=== PATIENT | male | born 1960 | race Caucasian/White ===

== ENCOUNTER 2017-03-22 09:31 | Emergency (ER) | payer BC ==
[2017-03-22] MEDS ORDERED: methylPREDNISolone Sod Succ/PF 125 MG/2 ML VIAL ONE (10:00)
[2017-03-22 10:08] LABS: #Basophils 0.1 thou/uL (0.0-0.2); #Eosinphils 0.1 thou/uL (0.0-0.7); #Lymphocytes 3.3 thou/uL (1.20-3.40); #Neutrophils 5.3 thou/uL (1.40-6.50); %Eosinophils 0.9 % (0.0-10.0); %Lymphocytes 33.8 % (21.0-51.0); %Monocytes 9.8 % (0.0-10.0); %Neutrophils 54.5 % (42.0-75.0); Hemoglobin 18.7 g/dL (14.0-18.0); Mean Corpuscular HGB CONC 32.7 g/dL (32.0-36.0); Mean Corpuscular Hemoglobin 32.5 pg (27.0-31.0); Mean Corpuscular Volume 99.1 fl (80.0-94.0); Mean Platelet Volume 9.6 fL (7.4-10.4); Platelet Count 258 thou/uL (130-400); RBC Distribution Width 14.9 % (11.5-14.5); Red Blood Cell (RBC) Count 5.76 mill/uL (4.70-6.10); White Blood Cell (WBC) Count 9.7 thou/uL (4.8-10.8)
[2017-03-22 10:46] LABS: ALT (SGPT) 10 U/L (0-55); AST (SGOT) 16 U/L (5-34); Albumin 3.5 g/dL (3.5-5.0); Alkaline Phosphatase 52 U/L (40-150); Anion Gap 10 mmol/L (10-20); BUN (Urea Nitrogen) 16 mg/dL (8.4-25.7); Bilirubin, Total 0.5 mg/dL (0.2-1.2); CK (CPK) 47 U/L (30-200); Calc. Creatinine Clearance 0 mL/min (70-130); Calcium 8.3 mg/dL (7.8-10.44); Carbon Dioxide 27 mmol/L (22-29); Chloride 107 mmol/L (98-107); Estimated GFR-MDRD Greater than 90; Globulin 2.3 g/dL (2.4-3.5); Glucose 116 mg/dL (70-105); Potassium 4.4 mmol/L (3.5-5.1); Protein, Total 5.8 g/dL (6.0-8.3); Sodium 140 mmol/L (136-145)
[2017-03-22 10:48] LABS: CKMB 2.3 ng/mL (0-6.6); Troponin I 0.108 ng/mL (< 0.028)
--- NOTE | 2017-03-22 21:54 | RAD ---
CHEST TWO VIEWS: Date: 03-22-17 Comparison: 03-18-14 FINDINGS: There is in an infiltrate present in the right lower lobe near the diaphragm consistent with pneumon ia. The left lung seems relatively clear. Some calcified granulomas are suggested in the hilar regio ns. The heart is mildly enlarged but there are no clear congestive changes. There may be some mild f ibrotic changes throughout the lungs. IMPRESSION: 1. Right lower lobe infiltrate. 2. Cardiomegaly. POS: HOME
== END 2017-03-22 13:28 | disposition short-term general hospital (02) ==
LOC: BURERS 09:31
DX: J44.1 Chronic obstructive pulmonary disease with (acute) exacerbation (principal); J18.9 Pneumonia, unspecified organism; I25.2 Old myocardial infarction; E78.5 Hyperlipidemia, unspecified; I10 Essential (primary) hypertension; Z87.891 Personal history of nicotine dependence; Z79.899 Other long term (current) drug therapy
CPT/HCPCS: 36415; 71020; 80053; 82550; 82553; 83880; 84484; 85025; 87040; 93005; 94640; 94760; 96365; 96366; 96375; J1956; J2930; J7620

== ENCOUNTER 2017-06-21 13:38 | Inpatient (IN) | payer MEDICARE ==
[2017-06-21] MEDS ORDERED: Albuterol Sulfate 1.25 MG/3 ML NEB INH PRN (17:43)
[2017-06-21] MEDS ORDERED: Nitroglycerin 0.4 MG TAB (25 Tab Bottle) SL PRN (17:43)
[2017-06-21] MEDS: HYDROcodone/Acetaminophen 10/325 mg Tablet PO PRN (18:14)
[2017-06-21] MEDS: Budesonide 0.5 MG/2 ML NEB NEB SCH (18:21)
[2017-06-21] MEDS: Arformoterol 15 MCG/2 ML NEB NEB SCH (18:46)
[2017-06-21] MEDS: Famotidine 20 MG TAB PO SCH (20:25)
[2017-06-21] MEDS: Simvastatin 40 MG TAB PO SCH (20:26)
[2017-06-22] MEDS: HYDROcodone/Acetaminophen 10/325 mg Tablet PO PRN ×4 (03:10→20:51)
[2017-06-22] MEDS: Enoxaparin Sodium 30 MG/0.3 ML SYRINGE SC SCH (06:14)
[2017-06-22] MEDS: Arformoterol 15 MCG/2 ML NEB NEB SCH ×2 (06:15→19:47)
[2017-06-22] MEDS: Budesonide 0.5 MG/2 ML NEB NEB SCH ×2 (06:16→19:31)
[2017-06-22] MEDS ORDERED: Amoxicillin/Potassium Clav 500 MG TAB PO SCH (09:00)
[2017-06-22] MEDS: Potassium Chloride 10 MEQ TAB PO SCH (09:34)
[2017-06-22] MEDS: Aspirin 325 MG TAB PO SCH (09:34)
[2017-06-22] MEDS: Famotidine 20 MG TAB PO SCH ×2 (09:35→20:50)
[2017-06-22] MEDS: Furosemide 40 MG TAB PO SCH (09:36)
[2017-06-22] MEDS: Clopidogrel Bisulfate 75 MG TAB PO SCH (09:36)
[2017-06-22] MEDS: Lisinopril 10 MG TAB PO SCH (09:37)
[2017-06-22] MEDS: Carvedilol 25 MG TAB PO SCH (09:38)
[2017-06-22] MEDS: Amoxicillin/Potassium Clav 875 MG TAB PO SCH ×2 (09:45→20:49)
[2017-06-22 11:56] VITALS: BMI 51.0
[2017-06-22] MEDS ORDERED: Amoxicillin/Potassium Clav 875 MG TAB ONE (20:43)
[2017-06-22] MEDS: Simvastatin 40 MG TAB PO SCH (20:50)
[2017-06-22] MEDS: Ondansetron ODT 4 MG TAB PO PRN (20:50)
[2017-06-23] MEDS: HYDROcodone/Acetaminophen 10/325 mg Tablet PO PRN ×3 (06:18→17:25)
[2017-06-23] MEDS: Arformoterol 15 MCG/2 ML NEB NEB SCH ×2 (06:20→19:00)
[2017-06-23] MEDS: Enoxaparin Sodium 30 MG/0.3 ML SYRINGE SC SCH (06:20)
[2017-06-23] MEDS: Budesonide 0.5 MG/2 ML NEB NEB SCH ×2 (06:23→19:26)
[2017-06-23] MEDS ORDERED: Amoxicillin/Potassium Clav 875 MG TAB ONE ×2 (08:47→20:45)
[2017-06-23] MEDS: Aspirin 325 MG TAB PO SCH (08:52)
[2017-06-23] MEDS: Potassium Chloride 10 MEQ TAB PO SCH (08:52)
[2017-06-23] MEDS: Clopidogrel Bisulfate 75 MG TAB PO SCH (08:52)
[2017-06-23] MEDS: Furosemide 40 MG TAB PO SCH (08:53)
[2017-06-23] MEDS: Lisinopril 10 MG TAB PO SCH (08:53)
[2017-06-23] MEDS: Famotidine 20 MG TAB PO SCH ×2 (08:53→20:53)
[2017-06-23] MEDS: Amoxicillin/Potassium Clav 875 MG TAB PO SCH ×2 (08:53→20:53)
[2017-06-23] MEDS: Carvedilol 25 MG TAB PO SCH (08:53)
[2017-06-23] MEDS: Simvastatin 40 MG TAB PO SCH (20:53)
[2017-06-24] MEDS: HYDROcodone/Acetaminophen 10/325 mg Tablet PO PRN ×3 (01:01→15:03)
[2017-06-24] MEDS: Enoxaparin Sodium 30 MG/0.3 ML SYRINGE SC SCH (06:36)
[2017-06-24] MEDS: Arformoterol 15 MCG/2 ML NEB NEB SCH ×2 (06:36→20:41)
[2017-06-24] MEDS: Budesonide 0.5 MG/2 ML NEB NEB SCH ×2 (06:38→20:55)
[2017-06-24] MEDS ORDERED: Amoxicillin/Potassium Clav 875 MG TAB ONE ×2 (07:54→20:37)
[2017-06-24] MEDS: Carvedilol 25 MG TAB PO SCH (08:27)
[2017-06-24] MEDS: Amoxicillin/Potassium Clav 875 MG TAB PO SCH ×2 (08:27→20:40)
[2017-06-24] MEDS: Potassium Chloride 10 MEQ TAB PO SCH (08:27)
[2017-06-24] MEDS: Lisinopril 10 MG TAB PO SCH (08:28)
[2017-06-24] MEDS: Famotidine 20 MG TAB PO SCH ×2 (08:28→20:40)
[2017-06-24] MEDS: Furosemide 40 MG TAB PO SCH (08:28)
[2017-06-24] MEDS: Aspirin 325 MG TAB PO SCH (08:28)
[2017-06-24] MEDS: Clopidogrel Bisulfate 75 MG TAB PO SCH (08:33)
[2017-06-24] MEDS: Simvastatin 40 MG TAB PO SCH (20:58)
[2017-06-25] MEDS: Enoxaparin Sodium 30 MG/0.3 ML SYRINGE SC SCH (05:45)
[2017-06-25] MEDS: Ondansetron ODT 4 MG TAB PO PRN ×2 (05:50→11:40)
[2017-06-25] MEDS: Arformoterol 15 MCG/2 ML NEB NEB SCH ×2 (05:54→18:30)
[2017-06-25] MEDS: Budesonide 0.5 MG/2 ML NEB NEB SCH ×2 (06:02→18:31)
[2017-06-25] MEDS: Famotidine 20 MG TAB PO SCH ×2 (11:04→20:31)
[2017-06-25] MEDS: Aspirin 325 MG TAB PO SCH (11:04)
[2017-06-25] MEDS: Furosemide 40 MG TAB PO SCH (11:04)
[2017-06-25] MEDS: Clopidogrel Bisulfate 75 MG TAB PO SCH (11:04)
[2017-06-25] MEDS: Potassium Chloride 10 MEQ TAB PO SCH (11:04)
[2017-06-25] MEDS: Lisinopril 10 MG TAB PO SCH (11:05)
[2017-06-25] MEDS: Carvedilol 25 MG TAB PO SCH (11:05)
[2017-06-25] MEDS ORDERED: Amoxicillin/Potassium Clav 875 MG TAB ONE ×2 (11:12→20:03)
[2017-06-25] MEDS: Amoxicillin/Potassium Clav 875 MG TAB PO SCH ×2 (11:13→20:31)
[2017-06-25] MEDS: Polyethylene Glycol 3350 17 GM Packet PO PRN (11:40)
[2017-06-25] MEDS: Simvastatin 40 MG TAB PO SCH (20:31)
[2017-06-26] MEDS: Enoxaparin Sodium 30 MG/0.3 ML SYRINGE SC SCH (06:09)
[2017-06-26] MEDS: Arformoterol 15 MCG/2 ML NEB NEB SCH ×2 (06:12→19:24)
[2017-06-26] MEDS: Budesonide 0.5 MG/2 ML NEB NEB SCH ×2 (06:20→19:26)
[2017-06-26] MEDS ORDERED: Amoxicillin/Potassium Clav 875 MG TAB ONE ×2 (08:05→21:01)
[2017-06-26] MEDS: Lisinopril 10 MG TAB PO SCH (08:37)
[2017-06-26] MEDS: Furosemide 40 MG TAB PO SCH (08:37)
[2017-06-26] MEDS: Aspirin 325 MG TAB PO SCH (08:37)
[2017-06-26] MEDS: Amoxicillin/Potassium Clav 875 MG TAB PO SCH ×2 (08:37→21:17)
[2017-06-26] MEDS: Famotidine 20 MG TAB PO SCH ×2 (08:37→21:17)
[2017-06-26] MEDS: Carvedilol 25 MG TAB PO SCH (08:38)
[2017-06-26] MEDS: Clopidogrel Bisulfate 75 MG TAB PO SCH (08:38)
[2017-06-26] MEDS: Potassium Chloride 10 MEQ TAB PO SCH (08:40)
[2017-06-26] MEDS ORDERED: Acetaminophen 500 MG TAB PO PRN (09:23)
[2017-06-26] MEDS: Simvastatin 40 MG TAB PO SCH (21:18)
[2017-06-27] MEDS: Arformoterol 15 MCG/2 ML NEB NEB SCH ×2 (06:14→18:05)
[2017-06-27] MEDS: Budesonide 0.5 MG/2 ML NEB NEB SCH ×2 (06:15→18:11)
[2017-06-27 06:30] LABS: Bilirubin Negative (Negative); Blood, Urine Negative (Negative); Clarity Clear (Clear); Glucose, Urine (Dipstick) Negative (Negative); Leukocyte Negative (Negative); Nitrite Negative (Negative); Protein, Urine (Dipstick) 100 mg/dL (Neg-Trace); Specific Gravity, Urine 1.015 (1.005-1.030); Urobilinogen 0.2 mg/dL (0.2-1.0); pH, Urine 8.5 (5.0-9.0)
[2017-06-27 06:43] LABS: Bacteria/HPF None Seen HPF (None Seen); RBC/HPF 0-3 HPF (0-3); Squamous Epithelial 0-3 HPF (0-3); WBC/HPF 0-3 HPF (0-3)
[2017-06-27] MEDS: Lisinopril 10 MG TAB PO SCH (08:52)
[2017-06-27] MEDS: Furosemide 40 MG TAB PO SCH (08:52)
[2017-06-27] MEDS: Aspirin 325 MG TAB PO SCH (08:53)
[2017-06-27] MEDS: Potassium Chloride 10 MEQ TAB PO SCH (08:53)
[2017-06-27] MEDS: Amoxicillin/Potassium Clav 875 MG TAB PO SCH ×2 (08:53→20:46)
[2017-06-27] MEDS: Famotidine 20 MG TAB PO SCH ×2 (08:53→20:46)
[2017-06-27] MEDS: Carvedilol 25 MG TAB PO SCH (08:53)
[2017-06-27] MEDS: Clopidogrel Bisulfate 75 MG TAB PO SCH (08:53)
[2017-06-27] MEDS: Polyethylene Glycol 3350 17 GM Packet PO PRN (09:12)
[2017-06-27] MEDS ORDERED: Amoxicillin/Potassium Clav 875 MG TAB ONE (20:06)
[2017-06-27] MEDS: Simvastatin 40 MG TAB PO SCH (20:46)
[2017-06-28] MEDS: HYDROcodone/Acetaminophen 10/325 mg Tablet PO PRN (02:39)
[2017-06-28 05:37] VITALS: TEMP 97.7
[2017-06-28] MEDS: Arformoterol 15 MCG/2 ML NEB NEB SCH (05:42)
[2017-06-28] MEDS: Budesonide 0.5 MG/2 ML NEB NEB SCH (05:45)
[2017-06-28] MEDS: Clopidogrel Bisulfate 75 MG TAB PO SCH (09:41)
[2017-06-28] MEDS: Famotidine 20 MG TAB PO SCH (09:42)
[2017-06-28] MEDS: Carvedilol 25 MG TAB PO SCH (09:42)
[2017-06-28] MEDS: Potassium Chloride 10 MEQ TAB PO SCH (09:42)
[2017-06-28] MEDS: Amoxicillin/Potassium Clav 875 MG TAB PO SCH (09:42)
[2017-06-28] MEDS: Aspirin 325 MG TAB PO SCH (09:42)
[2017-06-28] MEDS: Lisinopril 10 MG TAB PO SCH (09:43)
[2017-06-28] MEDS: Furosemide 40 MG TAB PO SCH (09:43)
[2017-06-28 09:44] VITALS: BP 134/76
--- NOTE | 2017-06-29 06:40 | DIS ---
DATE OF ADMISSION: 06/21/2017 DATE OF DISCHARGE: 06/28/2017 ADMISSION DIAGNOSES: Cellulitis of the right lower extremity, physical deconditioning, obesity, chronic obstructive pulmonary disease, obstructive sleep apnea, hypertension, history of type 2 diabetes mellitus. DISCHARGE DIAGNOSES: Resolution of cellulitis of the right lower extremity, physical deconditioning, obesity, chronic obstructive pulmonary disease, obstructive sleep apnea, hypertension, and history of type 2 diabetes mellitus. PROCEDURES: None. HOSPITAL COURSE: A 56-year-old male presented as a transfer from [facility], where he was treated for both right lower extremity cellulitis and COPD exacerbation. At the time of transfer, patient was advised to complete a 1-week course of oral Augmentin for cellulitis of the right lower extremity, which he was able to do successfully with resolution of this issue. Throughout his stay, the patient remained on supplemental oxygen for which he does have at home in regard to his history of COPD. He does have obstructive sleep apnea and would benefit from outpatient followup with sleep study for this. He was able to receive nebulized treatments, which will be continued at his home setting. Further care provided included physical therapy secondary to his underlying morbid obesity and deconditioned state. He was able to successfully complete the goals set forth by physical therapy in order to be able to transition home. Patient is stable from respiratory standpoint and as noted previously has had resolution of cellulitis and associated pain of the right lower extremity. He has remained afebrile and hemodynamically stable and is amenable for discharge at this time. DISPOSITION: The patient will discharge to his home setting and follow up with myself in the clinic in the next couple of weeks. He does have an outpatient appointment scheduled follow up with Pulmonology and will likely need to have a home sleep study secondary to lack of financial coverage done in the sleep center. DISCHARGE MEDICATIONS: Include simvastatin 40 mg p.o. at bedtime, Nitrostat 0.4 mg sublingual every 5 minutes x3 p.r.n., aspirin 325 mg p.o. daily, potassium chloride 10 mEq p.o. daily, Lasix 40 mg p.o. daily, carvedilol 25 mg p.o. daily, lisinopril 10 mg p.o. daily, Ranexa 1000 mg p.o. b.i.d., famotidine 20 mg p.o. b.i.d., budesonide 0.5 mg nebulizer twice daily, Plavix 75 mg p.o. daily, Brovana 15 mcg twice daily, albuterol sulfate neb 1.25 mg q.8 hours p.r.n., and isosorbide mononitrate 30 mg p.o. daily. MTDD
== END 2017-06-28 14:26 | disposition home or self-care (01) | DRG 603 ==
LOC: BURMED 14:30
PROVIDERS: ADMIT Family Medicine; ATTEND Family Medicine
DX: L03.115 Cellulitis of right lower limb (principal); I11.0 Hypertensive heart disease with heart failure; I50.9 Heart failure, unspecified; Z68.43 Body mass index [BMI] 50.0-59.9, adult; J44.9 Chronic obstructive pulmonary disease, unspecified; E11.9 Type 2 diabetes mellitus without complications; E78.5 Hyperlipidemia, unspecified; I25.10 Atherosclerotic heart disease of native coronary artery without angina pectoris; Z87.891 Personal history of nicotine dependence; E66.01 Morbid (severe) obesity due to excess calories
CPT/HCPCS: 36416; 81001; 94640; G8987-GO-CJ; G8988-GO-CI; J1650; J7626; Q0162

== ENCOUNTER 2018-09-18 12:27 | Emergency (ER) | payer MEDICARE, SELFPAY ==
[2018-09-18] MEDS ORDERED: Furosemide 40 MG/4 ML VIAL ONE (13:00)
[2018-09-18 13:02] LABS: %Lymphocytes 26.3 % (21.0-51.0); %Monocytes 8.9 % (0.0-10.0); %Neutrophils 61.9 % (42.0-75.0); Manual Diff?? YES; Mean Corpuscular HGB CONC 33.4 g/dL (32.0-36.0); Mean Corpuscular Hemoglobin 31.4 pg (27.0-31.0); Mean Corpuscular Volume 93.9 fL (78.0-98.0); Mean Platelet Volume 10.9 fL (7.4-10.4); Platelet Count 268 thou/uL (130-400); Red Blood Cell (RBC) Count 5.74 mill/uL (4.70-6.10)
[2018-09-18 13:03] LABS: #Basophils 0.1 thou/uL (0.0-0.2); #Eosinphils 0.2 thou/uL (0.0-0.7); #Monocytes 0.9 thou/uL (0.11-0.59); #Neutrophils 6.2 thou/uL (1.40-6.50); %Basophils 0.8 % (0.0-1.0); %Eosinophils 2.1 % (0.0-10.0); MDiff Complete? YES
[2018-09-18 13:18] LABS: CKMB 1.8 ng/mL (0-6.6)
[2018-09-18 13:19] LABS: Carbon Dioxide 32 mmol/L (22-29); Chloride 100 mmol/L (98-107); Sodium 141 mmol/L (136-145)
[2018-09-18 13:20] LABS: Anion Gap 14 mmol/L (10-20); BUN (Urea Nitrogen) 14 mg/dL (8.4-25.7); Bilirubin, Total 0.5 mg/dL (0.2-1.2); Calc. Creatinine Clearance 0 mL/min (70-130); Calcium 8.7 mg/dL (7.8-10.44); Estimated GFR-MDRD Greater than 90; Glucose 149 mg/dL (70-105); Protein, Total 6.2 g/dL (6.0-8.3)
[2018-09-18 13:21] LABS: ALT (SGPT) 14 U/L (8-55); AST (SGOT) 17 U/L (5-34); Albumin 3.4 g/dL (3.5-5.0); Alkaline Phosphatase 64 U/L (40-150); CK (CPK) 40 U/L (30-200); Globulin 2.8 g/dL (2.4-3.5); Lipase 28 U/L (8-78)
--- NOTE | 2018-09-18 14:19 | RAD ---
PORTABLE CHEST: Date: 09/18/18 Comparison made with the 03/22/17 study. FINDINGS: The heart is enlarged to about the same degree as before, but the upper lobe vessels seem mildly liudmila ested. While the right side of the mediastinum is prominent, the patient is turned to that side, whic h probably accounts for the prominence. I do not see any focal lobar infiltrates, nor are there are s ignificant sized effusions. Some calcified hilar granulomas are noted as before. IMPRESSION: 1. Cardiomegaly with mild congestive change. 2. Prominence of the right side of the mediastinum is probably due to rotation of the patient. POS: HOME
[2018-09-18] MEDS ORDERED: Acetaminophen/Codeine 30-300mg Tablet ONE (14:25)
[2018-09-18 22:45] LABS: Potassium 4.2 mmol/L (3.5-5.1)
[2018-09-18 22:46] LABS: RBC Distribution Width 14.4 % (11.5-14.5)
[2018-09-19 00:08] LABS: #Lymphocytes 2.6 thou/uL (1.20-3.40)
== END 2018-09-18 15:53 | disposition short-term general hospital (02) ==
LOC: BURERS 12:27
DX: R07.89 Other chest pain (principal); R79.89 Other specified abnormal findings of blood chemistry; R06.00 Dyspnea, unspecified; E78.5 Hyperlipidemia, unspecified; I11.9 Hypertensive heart disease without heart failure; I25.2 Old myocardial infarction; J44.9 Chronic obstructive pulmonary disease, unspecified; Z79.1 Long term (current) use of non-steroidal anti-inflammatories (NSAID); Z79.899 Other long term (current) drug therapy; Z87.891 Personal history of nicotine dependence
CPT/HCPCS: 71045; 80053; 82550; 82553; 83690; 83880; 84484; 85025; 93005; 94760; 96374; J1940

== ENCOUNTER 2019-02-13 09:22 | Inpatient (IN) | payer MEDICARE ==
[2019-02-13] MEDS ORDERED: Furosemide 100 MG/10 ML VIAL ONE (11:10)
[2019-02-13] MEDS ORDERED: Sodium Chloride 0.9% 10 ML ONE (11:11)
[2019-02-13] MEDS ORDERED: Metolazone 5 MG TAB ONE (11:12)
[2019-02-13 11:35] LABS: #Basophils 0.1 thou/uL (0.0-0.2); #Eosinphils 0.2 thou/uL (0.0-0.7); #Lymphocytes 2.9 thou/uL (1.20-3.40); #Monocytes 0.8 thou/uL (0.11-0.59); #Neutrophils 5.8 thou/uL (1.40-6.50); %Basophils 1.2 % (0.0-1.0); %Eosinophils 2.1 % (0.0-10.0); %Lymphocytes 29.3 % (21.0-51.0); %Monocytes 8.3 % (0.0-10.0); %Neutrophils 59.1 % (42.0-75.0); Hemoglobin 16.7 g/dL (14.0-18.0); Mean Corpuscular HGB CONC 30.9 g/dL (32.0-36.0); Mean Platelet Volume 10.7 fL (7.4-10.4); Platelet Count 247 thou/uL (130-400); RBC Distribution Width 14.4 % (11.5-14.5); Red Blood Cell (RBC) Count 5.23 mill/uL (4.70-6.10); White Blood Cell (WBC) Count 9.7 thou/uL (4.8-10.8)
[2019-02-13 12:01] LABS: ALT (SGPT) 9 U/L (8-55); AST (SGOT) 14 U/L (5-34); Albumin 3.3 g/dL (3.5-5.0); Alkaline Phosphatase 63 U/L (40-150); Anion Gap 12 mmol/L (10-20); BUN (Urea Nitrogen) 16 mg/dL (8.4-25.7); Bilirubin, Total 0.4 mg/dL (0.2-1.2); Calc. Creatinine Clearance 273 mL/min (70-130); Calcium 9.1 mg/dL (7.8-10.44); Carbon Dioxide 35 mmol/L (22-29); Chloride 99 mmol/L (98-107); Estimated GFR-MDRD Greater than 90; Globulin 2.8 g/dL (2.4-3.5); Glucose 135 mg/dL (70-105); Potassium 3.9 mmol/L (3.5-5.1); Protein, Total 6.1 g/dL (6.0-8.3); Sodium 142 mmol/L (136-145)
[2019-02-13] MEDS ORDERED: Nitroglycerin 0.4 MG TAB (25 Tab Bottle) SL PRN (15:17)
[2019-02-13] MEDS: Famotidine 20 MG TAB PO SCH (21:07)
[2019-02-13] MEDS: Atorvastatin Calcium 10 MG TAB PO SCH (21:07)
[2019-02-13] MEDS: Clopidogrel Bisulfate 75 MG TAB PO SCH (21:07)
[2019-02-13] MEDS: traMADol HCl 50 MG TAB PO PRN (21:07)
[2019-02-13] MEDS: Carvedilol 25 MG TAB PO SCH (21:10)
--- NOTE | 2019-02-13 22:20 | HP ---
CHIEF COMPLAINT: Volume overload. 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 Bianchi; however, I do not have a recent TTE for this patient, most recent one that I have is February 2013, showing severe left ventricular systolic dysfunction with an ejection fraction of 25% to 30%. He states he has not seen his warehouse shipping supervisor 'in a while,' but he is scheduled to do so in approximately one month. He reports to have been taking his Lasix 40 mg twice a day and trying to adhere to a low-sodium diet; however, his weight has been gradually increasing and he is up approximately 15 pounds from when he was seen here 3 to 4 months prior. In addition to his lower extremity edema and weight gain, he has complaints of associated orthopnea. Secondary to these findings, he was agreeable to directly admit to [facility] for IV diuresis. Initial lab work was not overtly impressive with a BNP of 146.8, other labs are largely stable. Chest x-ray is pending at this time. As discussed, we will diurese the patient back to his baseline weight and he will follow up with Dr. Bianchi thereafter. PAST MEDICAL HISTORY: Includes myocardial infarction, chronic low back pain, COPD, hypertension, CHF, and CAD. PAST SURGICAL HISTORY: Includes tonsillectomy, splenectomy, hand surgery, umbilical hernia repair, cardiac stents, one in 2017, two in 2013. SOCIAL HISTORY: The patient reports drinking socially. Denies smoking or illicit drug use. FAMILY HISTORY: Noncontributory. CURRENT MEDICATIONS: Include, 1. Ranexa 1000 mg extended release p.o. daily. 2. Nitrostat 0.4 mg sublingual as needed. 3. Aspirin 81 mg p.o. daily. 4. Albuterol nebs t.i.d. p.r.n. 5. Furosemide 40 mg p.o. b.i.d. 6. Carvedilol 25 mg p.o. b.i.d. 7. Simvastatin 40 mg p.o. at bedtime. 8. Isosorbide mononitrate 30 mg p.o. daily. 9. Plavix 75 mg p.o. daily. 10. Breo Ellipta 200/25 inhaled daily. 11. Lisinopril 10 mg p.o. daily. REVIEW OF SYSTEMS: GENERAL: Denies fever, chills, or diaphoresis. EAR, NOSE, AND THROAT: Denies sore throat, nasal drainage, or congestion. CARDIOVASCULAR: Denies chest pain. RESPIRATORY: Denies dyspnea or cough. GASTRO: Denies abdominal pain, nausea, vomiting, diarrhea, or constipation. GENITOURINARY: Denies dysuria. MUSCULOSKELETAL: Denies joint pain. DERM: Denies rash. NEURO: Denies headache. LABORATORY DATA: White blood cells 9.7, H and H are 16.7 and 54.1, and platelets are 247. Sodium 142, potassium 3.9, BUN 16, creatinine 0.73 with a GFR greater than 90, glucose 135, AST 14, ALT 9. BNP is 146.8. PHYSICAL EXAMINATION: VITAL SIGNS: Temperature is 97.7, pulse is 92, respiratory rate is 20, oxygen is 93% on 2 L, blood pressure is 127/72. GENERAL: The patient is alert and oriented, he is in no acute distress. He is obese. HEENT: Face, no asymmetry. Eyes, conjunctivae are clear. Extraocular muscles are intact bilaterally. No discharge. Head, eyes, ears, nose, and throat are within normal limits. Oral cavity, moist mucous membranes. He is missing multiple teeth. NECK: Supple. No meningeal signs. CARDIOVASCULAR: Borderline tachycardia. Normal S1, S2. No murmurs. RESPIRATORY: Decreased breath sounds. No wheezing or respiratory distress. GASTROINTESTINAL: Soft, essentially obese, nontender to palpation. EXTREMITIES: Warm, well perfused. He has 1+ edema to the right lower extremity and 2+ pitting edema to the left lower extremity. SKIN: No rashes. NEUROLOGIC: Nonfocal. ASSESSMENT AND PLAN: 1. Acute on chronic systolic congestive heart failure exacerbation. The patient has been started on Lasix 80 mg IV daily with the addition of metolazone 5 mg p.o. daily. He has been started on a 1500 mL restricted fluid intake. We will weigh him daily and follow up chest x-ray with repeat BNP in the morning. 2. Ischemic cardiomyopathy. The patient is in need of a repeat TTE. He is to follow up with his warehouse shipping supervisor, Dr. Bianchi next month in regards to this. 3. Coronary artery disease. We will continue the patient's Plavix and aspirin along with his simvastatin. 4. Hypertension, blood pressure is at goal. We will resume isosorbide, lisinopril, and carvedilol. 5. Chronic obstructive pulmonary disease, the patient is oxygen dependent. We will resume his usual 2 L and continue his respiratory medications. 6. Prophylaxis. We will provide famotidine for GI prophylaxis. Job ID: [id number] [facility] SYSTEMBharathi
[2019-02-13] MEDS ORDERED: Albuterol Sulfate 1.25 MG/3 ML NEB NEB PRN (23:00)
[2019-02-14 05:19] LABS: #Basophils 0.1 thou/uL (0.0-0.2); #Eosinphils 0.2 thou/uL (0.0-0.7); #Lymphocytes 2.8 thou/uL (1.20-3.40); #Monocytes 0.7 thou/uL (0.11-0.59); #Neutrophils 5.6 thou/uL (1.40-6.50); %Basophils 1.2 % (0.0-1.0); %Eosinophils 2.4 % (0.0-10.0); %Lymphocytes 29.9 % (21.0-51.0); %Monocytes 7.3 % (0.0-10.0); %Neutrophils 59.3 % (42.0-75.0); Hemoglobin 17.5 g/dL (14.0-18.0); Mean Corpuscular Hemoglobin 32.2 pg (27.0-31.0); Mean Platelet Volume 9.2 fL (7.4-10.4); Platelet Count 274 thou/uL (130-400); RBC Distribution Width 14.2 % (11.5-14.5); Red Blood Cell (RBC) Count 5.45 mill/uL (4.70-6.10); White Blood Cell (WBC) Count 9.4 thou/uL (4.8-10.8)
[2019-02-14 05:33] LABS: Anion Gap 13 mmol/L (10-20); BUN (Urea Nitrogen) 15 mg/dL (8.4-25.7); Calc. Creatinine Clearance 261 mL/min (70-130); Calcium 9.8 mg/dL (7.8-10.44); Carbon Dioxide 37 mmol/L (22-29); Chloride 93 mmol/L (98-107); Estimated GFR-MDRD Greater than 90; Glucose 143 mg/dL (70-105); Potassium 4.3 mmol/L (3.5-5.1); Sodium 139 mmol/L (136-145)
--- NOTE | 2019-02-14 08:09 | RAD ---
CHEST 2 VIEWS: Date: 02/14/19 Comparison made with the 09/18/18 study. The heart is moderately enlarged. There is very slight prominence of the upper lobe vessels, but not anything dramatic, nor is there any nasreen pulmonary edema or pleural effusion. No lobar infiltrate se en. The lungs are mildly hyperexpanded as usual. IMPRESSION: Cardiomegaly. Equivocal vascular prominence. POS: HOME
[2019-02-14] MEDS: Aspirin 325 MG TAB PO SCH (09:31)
[2019-02-14] MEDS: Carvedilol 25 MG TAB PO SCH ×2 (09:32→21:06)
[2019-02-14] MEDS: Sulfameth/Trimethoprim DS 800-160mg TAB PO SCH ×2 (09:32→21:05)
[2019-02-14] MEDS: Potassium Chloride 20 MEQ TAB PO SCH (09:33)
[2019-02-14] MEDS: Lisinopril 10 MG TAB PO SCH (09:33)
[2019-02-14] MEDS: Metolazone 5 MG TAB PO SCH (09:34)
[2019-02-14] MEDS: Furosemide 40 MG/4 ML VIAL SLOW IVP SCH (09:34)
[2019-02-14] MEDS: Famotidine 20 MG TAB PO SCH ×2 (09:34→21:06)
[2019-02-14 15:03] VITALS: BMI 50.5
[2019-02-14] MEDS: Clopidogrel Bisulfate 75 MG TAB PO SCH (21:06)
[2019-02-14] MEDS: Atorvastatin Calcium 10 MG TAB PO SCH (21:06)
[2019-02-15] MEDS: traMADol HCl 50 MG TAB PO PRN (04:47)
[2019-02-15 05:22] LABS: Anion Gap 16 mmol/L (10-20)
[2019-02-15 05:26] LABS: Chloride 92 mmol/L (98-107); Potassium 4.3 mmol/L (3.5-5.1); Sodium 139 mmol/L (136-145)
[2019-02-15 06:17] LABS: Calc. Creatinine Clearance 163 mL/min (70-130); Estimated GFR-MDRD 63
[2019-02-15 06:18] LABS: BUN (Urea Nitrogen) 24 mg/dL (8.4-25.7); Calcium 9.4 mg/dL (7.8-10.44); Carbon Dioxide 35 mmol/L (22-29); Glucose 134 mg/dL (70-105)
[2019-02-15 06:40] LABS: #Basophils 0.2 thou/uL (0.0-0.2); #Eosinphils 0.3 thou/uL (0.0-0.7); #Lymphocytes 2.2 thou/uL (1.20-3.40); #Neutrophils 5.7 thou/uL (1.40-6.50); %Basophils 1.7 % (0.0-1.0); %Lymphocytes 23.7 % (21.0-51.0); %Monocytes 10.2 % (0.0-10.0); %Neutrophils 61.4 % (42.0-75.0); Hemoglobin 16.3 g/dL (14.0-18.0); Mean Corpuscular HGB CONC 31.3 g/dL (32.0-36.0); Mean Corpuscular Hemoglobin 32.2 pg (27.0-31.0); Mean Platelet Volume 10.5 fL (7.4-10.4); Platelet Count 254 thou/uL (130-400); Red Blood Cell (RBC) Count 5.06 mill/uL (4.70-6.10); White Blood Cell (WBC) Count 9.3 thou/uL (4.8-10.8)
[2019-02-15] MEDS: Sulfameth/Trimethoprim DS 800-160mg TAB PO SCH ×2 (09:23→21:26)
[2019-02-15] MEDS: Carvedilol 25 MG TAB PO SCH ×2 (09:24→21:26)
[2019-02-15] MEDS: Lisinopril 10 MG TAB PO SCH (09:24)
[2019-02-15] MEDS: Famotidine 20 MG TAB PO SCH ×2 (09:28→21:26)
[2019-02-15] MEDS: Metolazone 5 MG TAB PO SCH (09:28)
[2019-02-15] MEDS: Potassium Chloride 20 MEQ TAB PO SCH (09:28)
[2019-02-15] MEDS: Aspirin 325 MG TAB PO SCH (09:29)
[2019-02-15] MEDS: Furosemide 40 MG/4 ML VIAL SLOW IVP SCH (09:30)
[2019-02-15] MEDS: Atorvastatin Calcium 10 MG TAB PO SCH (21:26)
[2019-02-15] MEDS: Clopidogrel Bisulfate 75 MG TAB PO SCH (21:26)
[2019-02-16 05:13] LABS: #Basophils 0.1 thou/uL (0.0-0.2); #Eosinphils 0.3 thou/uL (0.0-0.7); #Lymphocytes 2.7 thou/uL (1.20-3.40); #Monocytes 0.9 thou/uL (0.11-0.59); #Neutrophils 4.8 thou/uL (1.40-6.50); %Basophils 1.3 % (0.0-1.0); %Eosinophils 3.2 % (0.0-10.0); %Lymphocytes 30.7 % (21.0-51.0); %Monocytes 10.1 % (0.0-10.0); %Neutrophils 54.7 % (42.0-75.0); Hemoglobin 16.5 g/dL (14.0-18.0); Mean Corpuscular HGB CONC 31.9 g/dL (32.0-36.0); Mean Corpuscular Hemoglobin 32.3 pg (27.0-31.0); Mean Platelet Volume 10.5 fL (7.4-10.4); Platelet Count 274 thou/uL (130-400); RBC Distribution Width 13.9 % (11.5-14.5); Red Blood Cell (RBC) Count 5.12 mill/uL (4.70-6.10); White Blood Cell (WBC) Count 8.8 thou/uL (4.8-10.8)
[2019-02-16 05:23] LABS: Anion Gap 16 mmol/L (10-20); BUN (Urea Nitrogen) 27 mg/dL (8.4-25.7); Calc. Creatinine Clearance 155 mL/min (70-130); Calcium 9.9 mg/dL (7.8-10.44); Carbon Dioxide 36 mmol/L (22-29); Estimated GFR-MDRD 60; Glucose 122 mg/dL (70-105)
[2019-02-16 05:27] LABS: Chloride 91 mmol/L (98-107); Potassium 4.6 mmol/L (3.5-5.1); Sodium 138 mmol/L (136-145)
[2019-02-16 06:35] VITALS: BP 121/71; TEMP 98
[2019-02-16] MEDS: Furosemide 40 MG/4 ML VIAL SLOW IVP SCH (09:03)
[2019-02-16] MEDS: Famotidine 20 MG TAB PO SCH (09:04)
[2019-02-16] MEDS: Potassium Chloride 20 MEQ TAB PO SCH (09:04)
[2019-02-16] MEDS: Aspirin 325 MG TAB PO SCH (09:05)
[2019-02-16] MEDS: Lisinopril 10 MG TAB PO SCH (09:06)
[2019-02-16] MEDS: Sulfameth/Trimethoprim DS 800-160mg TAB PO SCH (09:06)
[2019-02-16] MEDS: Metolazone 5 MG TAB PO SCH (09:06)
[2019-02-16] MEDS: Carvedilol 25 MG TAB PO SCH (09:07)
--- NOTE | 2019-02-16 11:09 | DIS ---
DATE OF ADMISSION: 02/13/2019 DATE OF DISCHARGE: 02/16/2019 ADMISSION DIAGNOSES: 1. [id number] systolic congestive heart failure exacerbation. 2. Cellulitis of the left lower extremity. SECONDARY DIAGNOSES: 1. Ischemic cardiomyopathy. 2. Coronary artery disease. 3. Hypertension. 4. Chronic obstructive pulmonary disease, oxygen dependent. PROCEDURES: On 02/14/2019, chest x-ray showed cardiomegaly with equivocal vascular prominence. HOSPITAL COURSE: This is a 58-year-old male with aforementioned history of ischemic cardiomyopathy, systolic congestive heart failure, coronary artery disease, hypertension, and oxygen-dependent COPD, who presented to the outpatient clinical setting with gradual worsening of volume overload associated by more recent orthopnea. He is followed by his associate director data & analytics, Dr. Bianchi; however, has not had adequate followup with no TTE done within the last year to my knowledge. The patient did arrange for followup, which is to be done within the next few weeks prior to his visit in the outpatient setting on 02/13/2019. The patient's weight has notably increased by approximately 15 pounds and in light of his symptomatic state, he was directly admitted to [facility] for diuresis. It was noted that the patient had erythema to his left lower extremity concerning for cellulitis, although he did not have leukocytosis or fever, he was started on p.o. Bactrim empirically. The patient was typically on 40 mg p.o. b.i.d. of Lasix at home. He reported compliance with this regimen; however, his commented that he would sometimes miss doses. On the hospital floor, he was started on 80 mg IV Lasix daily with the addition of 5 mg p.o. metolazone daily. He was fluid restricted to 1500 mL daily and his weight was trended. The patient's weight has decreased from an initial weight of 386 to 369 pounds at this time. He feels much improved, and the erythema of his left lower extremity has largely resolved. He appears to be at his dry weight at this point, and his BNP is 41. I will resume the patient on his typical Lasix dosing at home of 40 mg p.o. b.i.d. with an addition of 2.5 mg p.o. daily metolazone at this time; I have advised strict adherence to this and fluid restriction by mouth until his followup with Cardiology in the next few weeks. DISPOSITION: The patient will discharge to his home setting and may follow up with myself in the clinic next week. He has been advised to make sure he follows up with Cardiology as planned as he is in need of a repeat TTE. DISCHARGE MEDICATIONS: Three new medicines will be, 1. 20 mEq p.o. daily of potassium. 2. Metolazone 2.5 mg p.o. daily. 3. Bactrim p.o. b.i.d. x5 days. He will resume his usual medications, which include; 1. Ranexa 1000 mg extended release p.o. daily. 2. Nitrostat 0.4 mg sublingual p.r.n. 3. Aspirin 81 mg p.o. daily. 4. Albuterol nebs t.i.d. p.r.n. 5. Lasix 40 mg p.o. b.i.d. 6. Carvedilol 25 mg p.o. b.i.d. 7. Simvastatin 40 mg p.o. at bedtime. 8. Isosorbide mononitrate 30 mg p.o. daily. 9. Plavix 75 mg p.o. daily. 10. Breo Ellipta 200/25 inhaled daily. 11. Lisinopril 10 mg p.o. daily. Job ID: [id number]
== END 2019-02-16 15:00 | disposition home or self-care (01) | DRG 292 ==
LOC: BURMED 09:25
PROVIDERS: ADMIT Family Medicine; ATTEND Family Medicine
DX: I11.0 Hypertensive heart disease with heart failure (principal); L03.116 Cellulitis of left lower limb; I50.23 Acute on chronic systolic (congestive) heart failure; G89.29 Other chronic pain; M54.5 Low back pain; J44.9 Chronic obstructive pulmonary disease, unspecified; I25.10 Atherosclerotic heart disease of native coronary artery without angina pectoris; I25.5 Ischemic cardiomyopathy; I25.2 Old myocardial infarction; Z90.89 Acquired absence of other organs; Z98.61 Coronary angioplasty status; Z98.890 Other specified postprocedural states; Z79.82 Long term (current) use of aspirin; Z79.02 Long term (current) use of antithrombotics/antiplatelets; Z99.81 Dependence on supplemental oxygen
CPT/HCPCS: 36415; 71046; 80048; 80053; 83880; 85025; J1940

== ENCOUNTER 2020-06-10 07:32 | Emergency (ER) | payer SELFPAY ==
[2020-06-10] MEDS ORDERED: methylPREDNISolone Sod Succ/PF 125 MG/2 ML VIAL ONE (08:01)
[2020-06-10] MEDS ORDERED: Furosemide 40 MG/4 ML VIAL ONE (08:02)
[2020-06-10 08:19] LABS: Hemoglobin 15.6 g/dL (14.0-18.0); Mean Corpuscular HGB CONC 28.8 g/dL (32.0-36.0); Mean Corpuscular Hemoglobin 30.5 pg (27.0-31.0); Mean Platelet Volume 10.2 fL (7.4-10.4); Platelet Count 219 thou/uL (130-400); RBC Distribution Width 14.7 % (11.5-14.5); Red Blood Cell (RBC) Count 5.12 mill/uL (4.70-6.10); White Blood Cell (WBC) Count 9.5 thou/uL (4.8-10.8)
[2020-06-10 08:23] LABS: ALT (SGPT) 9 U/L (8-55); AST (SGOT) 15 U/L (5-34); Albumin 3.4 g/dL (3.5-5.0); Alkaline Phosphatase 69 U/L (40-110); Anion Gap 13 mmol/L (10-20); BUN (Urea Nitrogen) 18 mg/dL (8.4-25.7); Bilirubin, Total 0.3 mg/dL (0.2-1.2); Calc. Creatinine Clearance 0 mL/min (70-130); Carbon Dioxide 35 mmol/L (22-29); Chloride 100 mmol/L (98-107); Estimated GFR-MDRD Greater than 90; Globulin 2.9 g/dL (2.4-3.5); Glucose 128 mg/dL (70-105); Potassium 4.5 mmol/L (3.5-5.1); Protein, Total 6.3 g/dL (6.0-8.3); Sodium 143 mmol/L (136-145)
[2020-06-10 08:24] LABS: Base Excess-Venous 6.4 mmol/L (-2.0 to 3.0); Bicarbonate (HCO3v) 36.9 mmol/L (22.0-28.0); CO2 Tension (PvCO2) 75.4 mmHg (40.0-50.0); Calcium, Ionized 1.17 mmol/L (See Comments:); Chloride 100 mmol/L (98-107); Hemoglobin - Calc 18.7 g/dL (14.0-18.0); Potassium 4.4 mmol/L (3.5-5.1); Sodium 144 mmol/L (138-145); T. Carbon Dioxide 39.3 mmol/L (22.0-28.0); vO2 Saturation-calc 95.3 % (60.0-85.0)
[2020-06-10 08:43] LABS: CKMB 1.6 ng/mL (0-6.6)
[2020-06-10 09:06] LABS: #Basophils 0.1 thou/uL (0.0-0.2); #Eosinphils 0.2 thou/uL (0.0-0.7); #Lymphocytes 2.6 thou/uL (1.20-3.40); #Monocytes 0.7 thou/uL (0.11-0.59); #Neutrophils 5.9 thou/uL (1.40-6.50); %Basophils 1.4 % (0.0-1.0); %Eosinophils 2.2 % (0.0-10.0); %Lymphocytes 26.9 % (21.0-51.0); %Monocytes 7.2 % (0.0-10.0); %Neutrophils 62.3 % (42.0-75.0); Hypochromia SLIGHT = 6-15 cells (100X) (0-5/hpf); MDiff Complete? YES; Macrocytosis MODERATE=16-30 cells (100X) (0-5/hpf)
--- NOTE | 2020-06-10 19:06 | RAD ---
PORTABLE CHEST: Date: 06-10-2020 An AP portable film at 0809 is compared with a 01-16-2020 study. FINDINGS: The heart is mildly enlarged. There is mild congestion of the vessels. There is slight haziness to th e lungs. No large effusions are present, but small ones may be. IMPRESSION: Mild congestive changes. POS: HOME
== END 2020-06-10 11:07 | disposition short-term general hospital (02) ==
LOC: BURERS 07:32
DX: I11.0 Hypertensive heart disease with heart failure (principal); I50.1 Left ventricular failure, unspecified; J44.1 Chronic obstructive pulmonary disease with (acute) exacerbation; I25.2 Old myocardial infarction; E78.5 Hyperlipidemia, unspecified; E78.00 Pure hypercholesterolemia, unspecified; Z87.891 Personal history of nicotine dependence; Z79.82 Long term (current) use of aspirin; Z79.51 Long term (current) use of inhaled steroids; Z79.899 Other long term (current) drug therapy
CPT/HCPCS: 71045; 80053; 82330; 82553; 82803; 83880; 84484; 85025; 93005; 96374; 96375; J1940; J2930; J7620

== ENCOUNTER 2020-07-24 12:27 | Emergency (ER) | payer SELFPAY ==
[2020-07-24 13:15] LABS: #Basophils 0.1 thou/uL (0.0-0.2); #Eosinphils 0.2 thou/uL (0.0-0.7); #Lymphocytes 2.7 thou/uL (1.20-3.40); #Monocytes 0.7 thou/uL (0.11-0.59); #Neutrophils 5.5 thou/uL (1.40-6.50); %Basophils 1.4 % (0.0-1.0); %Eosinophils 2.2 % (0.0-10.0); %Lymphocytes 28.9 % (21.0-51.0); %Monocytes 7.6 % (0.0-10.0); %Neutrophils 59.9 % (42.0-75.0); Hemoglobin 16.5 g/dL (14.0-18.0); INR-International Normal Ratio 0.9; MDiff Complete? YES; Macrocytosis SLIGHT = 6-15 cells (100X) (0-5/hpf); Mean Corpuscular HGB CONC 28.5 g/dL (32.0-36.0); Mean Corpuscular Hemoglobin 30.1 pg (27.0-31.0); Mean Platelet Volume 11.2 fL (7.4-10.4); PTT 34.1 sec (22.9-36.1); Platelet Count 235 thou/uL (130-400); Prothrombin Time 12.1 sec (12.0-14.7); RBC Distribution Width 13.8 % (11.5-14.5); Red Blood Cell (RBC) Count 5.46 mill/uL (4.70-6.10); White Blood Cell (WBC) Count 9.2 thou/uL (4.8-10.8)
[2020-07-24 13:26] LABS: ALT (SGPT) 12 U/L (8-55); AST (SGOT) 13 U/L (5-34); Albumin 3.5 g/dL (3.5-5.0); Alkaline Phosphatase 78 U/L (40-110); Anion Gap 14 mmol/L (10-20); BUN (Urea Nitrogen) 13 mg/dL (8.4-25.7); Bilirubin, Total 0.4 mg/dL (0.2-1.2); Calc. Creatinine Clearance 0 mL/min (70-130); Calcium 9.1 mg/dL (7.8-10.44); Carbon Dioxide 35 mmol/L (22-29); Chloride 96 mmol/L (98-107); Estimated GFR-MDRD Greater than 90; Glucose 111 mg/dL (70-105); Potassium 4.3 mmol/L (3.5-5.1); Protein, Total 6.5 g/dL (6.0-8.3); Sodium 141 mmol/L (136-145)
[2020-07-24 13:44] LABS: CKMB 1.7 ng/mL (0-6.6)
[2020-07-24] MEDS ORDERED: Furosemide 40 MG/4 ML VIAL ONE (13:47)
[2020-07-24] MEDS ORDERED: Aspirin Chewable 81 MG TAB ONE (13:47)
[2020-07-24] MEDS ORDERED: methylPREDNISolone Sod Succ/PF 125 MG/2 ML VIAL ONE (13:47)
--- NOTE | 2020-07-24 13:53 | RAD ---
PORTABLE CHEST: 07/24/20 An AP portable film at 1320 is compared with an 07/02/20 study. There really is minimal change in the interval. The heart is borderline in size. There is no vascular congestion or edema. No focal pulmona ry infiltrates or large effusions are seen. IMPRESSION: No acute finding. POS: HOME
== END 2020-07-24 14:05 | disposition short-term general hospital (02) ==
LOC: BURERS 12:27
DX: I11.0 Hypertensive heart disease with heart failure (principal); I50.9 Heart failure, unspecified; J44.9 Chronic obstructive pulmonary disease, unspecified; I25.2 Old myocardial infarction; E78.5 Hyperlipidemia, unspecified; E78.00 Pure hypercholesterolemia, unspecified; Z87.891 Personal history of nicotine dependence; Z79.899 Other long term (current) drug therapy
CPT/HCPCS: 71045; 80053; 82553; 83605; 83880; 84484; 85025; 85610; 85730; 93005; 96374; 96375; J1940; J2930; J7620

== ENCOUNTER 2022-01-22 09:10 | Outpatient (CLI) | payer MEDICARE | END 2022-01-22 09:11 | disposition home or self-care (01) | LOC: BURRAD 09:10 | PROVIDERS: ATTEND Family Medicine | DX: M54.50 Low back pain, unspecified (principal); M47.816 Spondylosis without myelopathy or radiculopathy, lumbar region; M47.815 Spondylosis without myelopathy or radiculopathy, thoracolumbar region | CPT/HCPCS: 72100 ==